=== PATIENT | female | born 1985 ===

== ENCOUNTER → 2018-05-03 | Outpatient (CLI) | payer OTHER ==
[~2018-05-03] MED LIST: CEFT250V36 IM; DULA1.5P; EMPA10TA; FOSI10TA46 PO; LEVO1IUD6; SULF-198 PO
== END ==
LOC: LAB 14:18
PROVIDERS: ATTEND Obstetrics & Gynecology
DX: R30.0 Dysuria (principal); R10.9 Unspecified abdominal pain; B96.20 Unspecified Escherichia coli [E. coli] as the cause of diseases classified elsewhere
CPT/HCPCS: 87077; 87088; 87186

== ENCOUNTER → 2018-12-26 | Outpatient (CLI) | payer OTHER ==
[~2018-12-26] MED LIST changes: -CEFT250V36 IM; +CEFT250V37 IM; +METF-452 PO; +NITR-105 PO
== END ==
LOC: LAB 11:59
PROVIDERS: ATTEND Obstetrics & Gynecology
DX: R30.0 Dysuria (principal)
CPT/HCPCS: 87088